=== PATIENT | male | born 1960 | race Caucasian/White ===

== ENCOUNTER → 2020-07-02 10:54 | Outpatient (CLI) | payer OTHER, SELFPAY ==
[2020-07-03 07:44] LABS: COVID19 Sendout Not Detected (Not Detect)
== END ==
PROVIDERS: PCP Student in an Organized Health Care Education/Training Program; Visit Provider Physician Assistant
DX: Z11.59 Encounter for screening for other viral diseases (principal)
CPT/HCPCS: 87635

== ENCOUNTER 2020-07-05 09:35 | Outpatient (CLI) | payer OTHER, SELFPAY ==
[2020-07-05] VITALS (7 sets, daily range): BP systolic 115–141; BP diastolic 70–84; PULSE 64–87; RESP 15–20; O2SAT 95–97
--- NOTE | 2020-07-05 09:38 | DI.RAD.S_ITS ---
PROCEDURE: PAIN L/S FACET INJ/BLK 1ST JUAN COMPARISON: None. INDICATIONS: SPONDYLOSIS FINDINGS: Bilateral needle tip localizations have been performed, L4-5 and L5-S1 levels, for facet joint injections. IMPRESSION: 4 separate procedures were performed, facet joint injections bilaterally at L4-5 and L5-S1. Dictated by: Philip Magallon M.D. on 07/06/2020 at 12:16 Approved by: Philip Magallon M.D. on 07/06/2020 at 12:20
[2020-07-05] MEDS: fentaNYL 100 MCG/2 ML INJ 50 MCG IV (11:00)
[2020-07-05] MEDS: LIDOCAINE 1% 20 ML 10 ML INJ (11:06)
[2020-07-05] MEDS: MIDAZOLAM 5 MG/5 ML VIAL IV (11:06)
[2020-07-05] MEDS: IOPAMIDOL 15 ML VIAL 3 ML INJ (11:06)
[2020-07-05] MEDS: BUPIVACAINE 0.5% (PF) VIAL 2 ML INJ (11:06)
[2020-07-05] MEDS: BETAMETHASONE 30 MG/5 ML MDV 12 MG INJ (11:07)
--- NOTE | 2020-07-05 11:15 | P.PCN_ITS ---
Date/Time/Diagnoses Date of procedure: 07/05/20 Time of procedure: 11:16 Pre-procedure diagnosis: 1. FACET ARTHROPATHY 2. AXIAL LBP 3. MULTILEVEL DDD Post-procedure diagnosis: same Procedure Notes Procedure: 1. FLUOROSCOPICALLY GUIDED CONTRAST CONTROLLED FACET JOINT INJECTIONS BILATERAL L4/5, L5/S1 Indications: Chapo is referred by Dr. Alatorre for treatment of Axial LBP Physician: Matty Ca Total Fluoroscopy time (seconds): 11 Total sedation minutes: 10 Complications: none Procedure in detail & Post-procedure care: FINDINGS Multilevel Facet Arthropathy with Clinically significant axial LBP DESCRIPTION OF PROCEDURE Fluoroscopically guided, contrast-controlled bilateral L4/5, L5/S1 facet joint injections. Following review of allergy and review of potential side effects and complications, including, but not necessarily limited to, infection, allergic reaction, local tissue breakdown, stroke, temporary or permanent nerve injury, paralysis, and possible , the patient indicated that the patient understood and agreed to proceed. An informed consent document was signed by the patient, witnessed by a nurse, and placed in the patient's chart. Additionally, other treatment options including medications, modalities, and physical therapy were reviewed with the patient. After review of previous anaesthesic history and IV conscious sedation the patient was deemed safe to proceed with today?s procedure with IV conscious sedation as ASA class II designation. Safety time-out was performed to confirm patient ID, procedure to be performed and site of procedure. IV sedation was accomplished with a combination of 3mg of Versed and 50mcg of Fentanyl was administered by the RN after DO order, titrated to patient comfort during the course of the procedure while the patient remained responsive to all verbal commands In the prone position, following sterile prep and drape of the lumbar region, the posterior aspect of the L4/5, L5/S1 facet joints were identified fluoroscopically. The skin was anesthetized via a 25-gauge 1.5inch needle with 1% lidocaine solution into the corresponding facet joints. At this point, a 22- gauge 3.5-inch spinal needle was atraumatically introduced and advanced under fluoroscopic guidance into the corresponding facet joints. Following negative aspiration, injections of approximately 0.2cc of Isovue 200 confirmed i nterarticular placement without vascular uptake. The identical procedure was then performed at the L4/5, L5/S1 facet joints on the left. Radiological data, including multiple fluoroscopic views of the lumbosacral spine, reveal a spinal needle at the L4/5, L5/S1 facet joints bilaterally. Subsequent views show flow of contrast material both superiorly and inferiorly within the joint space without vascular or intrathecal uptake. At this point, a total of 0.5cc including a mixture of 0.25cc Marcaine and 0.25cc betamethasone was injected without complication into each of the corresponding facet joints. The patient tolerated the procedure well without signs or symptoms of complications prior to transfer to the recovery area continued monitoring without incident. The patient was then transferred to the recovery area where they were observed for an appropriate period of time after the injection. The patient reported a VAS score of 7 prior to the procedure and a post- procedure VAS of 0. POST OP INSTRUCTIONS The patient was provided a Pain Log to continue to record their response to the target-specific procedure prior to follow-up visit with their referring physician. Additionally, specific post-injection care instructions and a contact number to our office were provided if concerns arise regarding possible complications associated with the procedure are suspected.
--- NOTE | 2020-07-05 16:01 | PC.NURSE ---
All Sedation Medication administered by WELLINGTON Hickey. All other procedural meds administered by Dr. Ca
== END 2020-07-05 11:45 | disposition home or self-care (01) ==
LOC: RAD 09:36
PROVIDERS: PCP Student in an Organized Health Care Education/Training Program; Referring Provider Physical Medicine & Rehabilitation; Visit Provider Physical Medicine & Rehabilitation
DX: M47.816 Spondylosis without myelopathy or radiculopathy, lumbar region (principal); M47.817 Spondylosis without myelopathy or radiculopathy, lumbosacral region; M54.5 Low back pain; M51.36 Other intervertebral disc degeneration, lumbar region; M51.37 Other intervertebral disc degeneration, lumbosacral region
CPT/HCPCS: 64493; 64494; 99152; J0702; J2250; J3010

== ENCOUNTER 2020-09-06 13:22 | Outpatient (CLI) | payer OTHER, SELFPAY ==
[2020-09-06] VITALS (9 sets, daily range): BP systolic 110–163; BP diastolic 69–96; PULSE 70–86; RESP 10–19; TEMP 36.2; O2SAT 92–97
--- NOTE | 2020-09-06 13:25 | DI.RAD.S_ITS ---
PROCEDURE: PAIN L/S FACET INJ/BLK 1ST JUAN COMPARISON: [facility], , PAIN L/S FACET INJ/BLK 1ST JUAN, 07/05/2020, 10:48. INDICATIONS: SPONDYLOSIS FINDINGS: Fluoroscopic spot filming was performed to verify placement of spinal needles at the L4, L5, S1 level(s), as labeled on the films. Appropriate location(s) of the needle tip(s) was confirmed by injection of iodinated contrast. Dictated by: Kranthi Fulton M.D. on 09/06/2020 at 15:34 Approved by: Kranthi Fulton M.D. on 09/06/2020 at 15:35
[2020-09-06] MEDS: fentaNYL 100 MCG/2 ML INJ 50 MCG IV (14:20)
[2020-09-06] MEDS: MIDAZOLAM 5 MG/5 ML VIAL IV (14:20)
[2020-09-06] MEDS: BUPIVACAINE 0.5% (PF) VIAL 5 ML INJ (14:25)
[2020-09-06] MEDS: IOPAMIDOL 15 ML VIAL 3 ML INJ (14:26)
[2020-09-06] MEDS: LIDOCAINE 1% 20 ML 10 ML INJ (14:26)
--- NOTE | 2020-09-06 14:37 | P.PCN_ITS ---
Date/Time/Diagnoses Date of procedure: 09/06/20 Time of procedure: 14:37 Pre-procedure diagnosis: 1. FACET ARTHROPATHY Post-procedure diagnosis: same Procedure Notes Procedure: 1. BILATERAL- L4, L5 and S1 DIAGNOSTIC MB BLOCKS with LA Anesthetic Indications: Chapo is referred by Dr. Alatorre for treatment of Bilateral Axial LBP. Physician: Matty Ca Total Fluoroscopy time (seconds): 13 Total sedation minutes: 15 Complications: none Procedure in detail & Post-procedure care: DESCRIPTION OF PROCEDURE Fluoroscopically guided, contrast-controlled bilateral L4, L5 and S1 medial branch blocks with 0.5cc of 0.5% Marcaine. Following review of allergy and review of potential side effects and complications, including, but not necessarily limited to, infection, allergic reaction, local tissue breakdown, nerve injury, paralysis, stroke and possible , the patient indicated that the patient understood and agreed to proceed. An informed consent document was signed by the patient, witnessed by a nurse, and placed in the patient's chart. After review of previous anaesthesic history and IV conscious sedation the patient was deemed safe to proceed with today's procedure with IV conscious chester tion as ASA class II designation. Safety time-out was performed to confirm patient ID, procedure to be performed and site of procedure. IV sedation was accomplished with a combination of 2mg of Versed and 50mcg of Fentanyl was administered by the RN after DO order, titrated to patient comfort during the course of the procedure while the patient remained responsive to all verbal commands In the prone position, following sterile prep and drape of the lumbar region, the right L4, L5 and S1 anatomical location of the medial branch of the dorsal ramus was identified fluoroscopically. Subsequently an anesthetic skin wheal using 1% lidocaine solution was initiated at each of the anatomical spots. Subsequently then a 22-gauge 3.5-inch spinal needle was atraumatically introduced and advanced under fluoroscopic guidance at each of the corresponding sites at the right L4, L5 and S1 MB. After negative aspiration, 0.2cc of Isovue 200 was injected, confirming placement without vascular or intrathecal uptake. Subsequently then 0.5cc of 0.5% Marcaine solution was injected at each of the corresponding sites at the right L4, L5 and S1 medial branch locations. The identical procedure was replicated on the left. The patient tolerated the procedure well without signs or symptoms of complications prior to transfer to the recovery area continued monitoring without incident. Post-procedure, the patient was monitored initiating provocative activities to measure the amount of relief from block of the facetogenic pain. The patient reported a VAS of 7 prior to the procedure and a post-procedure VAS of 1. It has been a pleasure to assist in the diagnostic and therapeutic care of your patient. POST OP INSTRUCTIONS The patient was provided with a Pain Log to complete over the next several hours and subsequent days prior to the patient's follow up with the ordering physician. If the patient has automotive light mechanic relief to the solution applied, then they may be a candidate for medial branch rhizotomy. The patient is aware, was provided, once again, with a Pain Log and will follow up with the referring physician for review and clinical correlation
== END 2020-09-06 15:08 | disposition home or self-care (01) ==
PROVIDERS: PCP Student in an Organized Health Care Education/Training Program; Referring Provider Physical Medicine & Rehabilitation; Visit Provider Physical Medicine & Rehabilitation
DX: M47.816 Spondylosis without myelopathy or radiculopathy, lumbar region (principal); M47.817 Spondylosis without myelopathy or radiculopathy, lumbosacral region
CPT/HCPCS: 64493; 64494; 99152; J2250; J3010

== ENCOUNTER → 2020-11-21 12:16 | Outpatient (CLI) | payer OTHER, SELFPAY ==
--- NOTE | 2020-11-21 12:21 | DI.MRI.S_ITS ---
PROCEDURE: MR CERVICAL SPINE WO CON INDICATIONS: Cervical spondylosis TECHNIQUE: Noncontrast sagittal T1 spin echo and T2 fast spin echo, sagittal STIR, foraminal oblique sagittal T2 fast spin echo, and axial gradient echo or T2 fast spin echo through the cervical spine. COMPARISON: [facility], [place], XR CERVICAL SPINE 6+ VIEWS, 11/01/2020, 11:22. FINDINGS: Image quality: Excellent. Alignment and Curvature: There is normal bony alignment. Bone Marrow: Marrow demonstrates normal overall signal. Spinal Cord: Visualized spinal cord has normal size and signal. No cerebellar tonsillar herniation. Paraspinous Soft Tissues: No paravertebral masses. Prevertebral soft tissues are normal in thickness. C2-C3: No canal stenosis. [id number] bilateral foraminal stenosis without nerve root impingement. C3-C4: Disc bulge abutting the cord. AP diameter of the canal is slightly greater than 1 cm. Mild bilateral uncovertebral joint hypertrophy. Vlnv-om-juyfcnga bilateral foraminal narrowing. C4-C5: Disc bulge, eccentric to the right, abutting the right ventral surface of the cord resulting in mild stenosis of the right side of the spinal canal. Right uncovertebral joint hypertrophy. Moderate right foraminal narrowing with mild flattening deformity on the exiting right C5 nerve root. Mild to moderate left foraminal narrowing. C5-C6: Diffuse posterior osteophyte plus disc. Moderate to severe canal stenosis. There are bilateral uncovertebral joint osteophytes which result in marked foraminal narrowing and impingement on the bilateral C6 nerve roots in the foramina. C6-C7: Disc bulge. No canal stenosis. Right uncovertebral joint hypertrophy. Moderate right foraminal narrowing with mild flattening deformity on the exiting right C7 nerve root. C7-T1: No canal stenosis or foraminal stenosis. IMPRESSION: 1. Diffuse cervical spondylitic change. 2. At C4-C5, there is mild stenosis of the right side of the spinal canal. At C5-C6 there is moderate to severe canal stenosis. 3. Multilevel foraminal narrowing as described above. Findings include marked bilateral foraminal narrowing at C5-C6 with bilateral C6 nerve root impingement. Dictated by: Fransico Begum M.D. on 11/21/2020 at 13:29 Approved by: Fransico Begum M.D. on 11/21/2020 at 13:38
== END ==
PROVIDERS: PCP Student in an Organized Health Care Education/Training Program; Referring Provider Physical Medicine & Rehabilitation; Visit Provider Physical Medicine & Rehabilitation
DX: M47.812 Spondylosis without myelopathy or radiculopathy, cervical region (principal); M48.02 Spinal stenosis, cervical region
CPT/HCPCS: 72141

== ENCOUNTER → 2021-01-02 09:46 | Outpatient (CLI) | payer OTHER, SELFPAY ==
--- NOTE | 2021-01-02 09:48 | DI.RAD.S_ITS ---
PROCEDURE: FL BARIUM SWALLOW W SPEECH INDICATIONS: globus sensation COMPARISON: None. TECHNIQUE: Examination was conducted in conjunction with speech pathology per standard protocol. In the lateral projection, filming was performed of the patient swallowing. AP projection filming may also be performed with patient swallowing. COMPARISON: FINDINGS: Function: The oral preparatory phase appears normal, with proper containment. The subsequent oral propulsive phase, pharyngeal phase, and esophageal phase of swallowing also appear normal with all proffered substances. No laryngotracheal penetration or aspiration. No pathologic vallecular pooling. Morphology: No cricopharyngeal bar is identified. No cervical esophageal webs. No Zenker's diverticulum. No strictures. Slight prominence of the soft tissues noted at the origin of the cervical esophagus. IMPRESSION: 1. No laryngotracheal penetration or aspiration. 2. No cricopharyngeal bar, esophageal webs or esophageal stricture. 3. Slight soft tissue prominence at the origin of the cervical esophagus. Recommend CT scan of the soft tissues of neck with contrast to exclude extrinsic mass. Dictated by: Berna Lieberman MD, PhD on 01/02/2021 at 11:53 Approved by: Berna Lieberman MD, PhD on 01/02/2021 at 11:55
--- NOTE | 2021-01-04 13:01 | ST.SWALLOW ---
Visit Care Team Role Provider Type Jorge L Alatorre MD Attending Provider Non-Staff Primary Care Provider Referring Provider Specialty: Medical Address: [address] [place] [address], [place], [place], [facility] Email: Modified Barium Swallow Study [employer]IAN Modified Barium Swallow Study Start: 01/03/21 15:30 Freq: Status: Active Protocol: Document 01/02/21 16:05 LNK (Rec: 01/03/21 17:11 LNK [id number]) Modified Barium Swallow Study Total Time Visit Start Time 10:30 Visit Stop Time 11:00 Total Visit Minutes 30 Referral Referring Physician Jorge L Alatorre MD Reason for Referral dysphagia Setting Setting Outpatient Care Patient Information Identification Type Name,Date of Patient History The pt was seen for a MBSS at the referral of his physician, Dr. Alatorre. According to the pt, he continually experiences tightness around his throat. There is also a sense of globus when he swallows (pt points to sternal notch area). He reports that his throat feels as very tight , sometimes to the point of throwing up. Pt denies injury or surgery to the neck area. He did state that he saw an ENT in [place] who told him him he may have a mass in his pharynx. He also noted that although he has no diagnosis of reflux, he has been taking omneprozol. He also stated he has some cervical nerve impingement. MBSS was ordered to r/o oropharyngeal dysphagia and determine current swallow function. [ Subjective Observations Pt was seated in the fluoroscopy chair. Instructions and procedures were described for the pt who indicated he understood and agreed Patient Positioning Position View Lateral Imaging Lateral View Textures Administered Trials Presented Thin Liquid via Spoon,Thin Liquid via Cup,Pudding Thick Liquid via Spoon,Dysphagia Blenderized Textures,Regular Textures,Barium Tablet Oral Phase Source: MBSIMP (TM) (C) Bolus Specific Scoring Grid Lip Closure No Impairment (WNL) Tongue Control During Bolus Hold No Impairment (WNL) Bolus Prep/Mastication No Impairment (WNL) Bolus Transport/Lingual Motion No Impairment (WNL) A/P Lingual Propulsion Delay No Oral Residue No Impairment (WNL) Nasal Regurgitation No Additional Oral Phase Observations Dentition was natural with good hygeine. Diadochokinesis WNL Pharyngeal Phase Source: MBSIMP (TM) (C) Bolus Specific Scoring Grid Delayed Initiation of Pharyngeal Swallow No Soft Palate Elevation No Impairment (WNL) Tongue Base Strength/Range of Motion Mild Impairment Residue Along the Tongue Base Yes Clearance of Residue Along Tongue Base Mild Impairment Laryngeal Elevation Mild Impairment Anterior Hyoid Movement Mild Impairment Epiglottic Range of Motion WFL Vallecular Residue Yes Clearance of Vallecular Residue Mild Impairment Laryngeal Vestibular Closure WFL Pharyngeal Stripping Wave Minimal Impairment Posterior Pharyngeal Wall Residue Yes Clearance of Posterior Pharyngeal Wall Minimal Impairment Residue Upper Esophageal Sphincter Opening WFL Residue in the Pyriform Sinuses No Esophageal Clearance Upright Position WFL Pharyngoesophageal Backflow Observed No Additional Pharyngeal Phase Observations Pt's swallow response was WFL. Hyolaryngeal elevation and movement was mildly impaired which impacted pooling within the valeculla and at the tongue base. Epiglottic inversion and the seal of the laryngeal vestibule was WFL. No laryngeal penetration or aspiration was observed. Pharyngeal pooling was cleared with subsequent swallows. A/P View Textures Administered Trials Presented Thin Liquid via Spoon,Barium Tablet A/P View Observations Esophageal Function Slowed Clearing,Stasis Esophageal Clearance Upright Position Mild Impairment Clinical Impressions Dysphagia Type No Dysphagia Findings Pt's swallowing in oral and pharyngeal phases was WFL. Minimal to mild impairments were noted but overall did not impact the safety of his swallowing. He reported that an ENT told him he may have a mass in his pharynx. The radiologist for this MBS noted a slight soft tissue prominence at the origin of the cervical esophagus. Recommend CT scan of the soft tissues of neck with contrast to exclude extrinsic mass. Further evaluation of his pharynx is recommended. Patient Appropriate for Therapy No Recommendations Treatment Plan Recommended Referrals Primary Care Physician,Other, ENT Consult
== END ==
PROVIDERS: PCP Student in an Organized Health Care Education/Training Program; Referring Provider Student in an Organized Health Care Education/Training Program; Visit Provider Student in an Organized Health Care Education/Training Program
DX: R07.0 Pain in throat (principal); R68.89 Other general symptoms and signs
CPT/HCPCS: 74230; 92611

== ENCOUNTER → 2021-03-29 10:59 | Outpatient (CLI) | payer OTHER, SELFPAY ==
--- NOTE | 2021-03-29 10:59 | DI.MRI.S_ITS ---
PROCEDURE: MR ORBITS FACE NECK WO CON INDICATIONS: Other general symptoms and signs TECHNIQUE: Noncontrast sagittal T1 spin echo, axial FLAIR, axial gradient echo, axial diffusion and ADC acquired through the brain. Coronal STIR, thin-slice axial T1 spin echo through the orbits. After the administration of contrast, thin-slice axial and coronal T1 spin echo with fat saturation through the orbits, axial T1 spin echo with fat saturation through the brain. COMPARISON: [facility], , [place] BARIUM SWALLOW W SPEECH, 01/02/2021, 10:51. FINDINGS: Image quality: Excellent. Mucosal and deep spaces of the neck are normal with no pathologic enhancement or evidence of mass. Normal appearance of the parotid, submandibular, and thyroid glands. No cervical lymphadenopathy. There is medialization of the common carotid arteries and extracranial internal carotid arteries bilaterally, with a slightly retropharyngeal course of the right extracranial internal carotid artery in particular. This likely accounts for the impression upon the posterior esophagus seen on the comparison fluoroscopic examination. There is no evidence of extrinsic compression upon the esophagus otherwise. Vascular flow voids in the neck are maintained. Normal marrow signal with no pathologic enhancement in the marrow space. IMPRESSION: Medialization of the right greater than left extracranial internal carotid arteries, likely responsible for the subtle impression upon the posterior softened seen previously. This is of doubtful but potential clinical significance in the setting of dysphagia or globus sensation. Dictated by: Martín Vallejo M.D. on 03/29/2021 at 12:43 Approved by: Martín Vallejo M.D. on 03/29/2021 at 12:49
== END ==
PROVIDERS: PCP Student in an Organized Health Care Education/Training Program; Referring Provider Student in an Organized Health Care Education/Training Program; Visit Provider Student in an Organized Health Care Education/Training Program
DX: R68.89 Other general symptoms and signs (principal)
CPT/HCPCS: 70540